=== PATIENT | female | born 1955 ===

== ENCOUNTER 2018-07-14 05:54 | Inpatient (IN) | payer MEDICARE, MEDICAID ==
--- NOTE | 2018-07-04 21:13 | HP ---
PREOPERATIVE HISTORY AND PHYSICAL: DATE OF ADMISSION/SURGERY: 07/14/18. DATE OF OFFICE VISIT: 07/04/18. ATTENDING SURGEON: Dr. Rick Peterson.* (DICTATED BY REED RHODES) PROCEDURE: Right total knee replacement. CHIEF COMPLAINT: Right knee pain. HISTORY OF PRESENT ILLNESS: Maeve is a 63-year-old female, who presents to clinic for right knee pain due to end-stage osteoarthritis. She has failed conservative treatment to include physical therapy, and injections as well as genicular block. She continues to have knee, and therefore she has agreed to undergo a right total knee replacement with Dr. Peterson, on 07/14/18. PAST MEDICAL HISTORY: Headache, depression, back pain, hypertension, hyperlipidemia, psoriasis, GERD, COPD, and heart murmur. PAST SURGICAL HISTORY: Removal of uterine cyst in 1979, tubal ligation, partial hysterectomy, right thumb tendon surgery, bilateral cataract surgery, disk surgery in her neck and a left total knee replacement. The patient denies prior complications with anesthesia. MEDICATIONS: 1. Voltaren 1% apply 4g twice daily as needed. 2. Cyclobenzaprine 10 mg 1 by mouth 3 times a day. 3. Norvasc 10 mg 1 by mouth every day. 4. Lisinopril and hydrochlorothiazide 20/25, one every day. 5. Mansfield 10/325, one by mouth 3 times a day as needed. ALLERGIES: OXYCODONE, ERYTHROMYCIN, PAXIL, DARVOCET, and CELEBREX. FAMILY HISTORY: Positive for heart disease and cancer. SOCIAL HISTORY: She is a . She is retired. She denies alcohol use. She smokes half a pack per day. She denies illegal drug use. REVIEW OF SYSTEMS: A 14-point review of systems was reviewed with the patient. Positive for current complaint, otherwise negative. Denies fever, chills, chest pain, shortness of breath, history of bleeding disorder, history of DVT or PE. PHYSICAL EXAMINATION GENERAL: A 63-year-old, well-developed, well-nourished female, in no acute distress. Alert and oriented x3. Appropriate mood and affect. Appropriate balance and coordination of the lower extremities. VITAL SIGNS: Height 61, weight 156. Blood pressure 124/64, respiratory rate 20 , temperature 98, BMI 31.4. HEENT: Normocephalic, atraumatic. PERRLA. NECK: Supple. Throat clear. PULMONARY: Lungs clear to auscultation bilaterally. No wheezing, rhonchi or rales. CARDIAC: Regular rate and rhythm. S1 and S2. No murmurs, gallops or rubs. No edema. ABDOMEN: Positive bowel sounds. Soft, nontender. NEUROLOGIC: Alert and oriented x3. Cranial nerves grossly intact. Sensation intact to light touch. MUSCULOSKELETAL: Right knee, she has moderate effusion in her knee. Range of motion 0 to 110. Tenderness to palpation over the medial and lateral joint line. Stable to varus and valgus stress. Calves soft, nontender, +5/5 strength ankle, dorsiflexion, plantar flexion. +2 DP pulse. Sensation intact to light touch distally. DIAGNOSTIC STUDIES: Multiple view x-rays of the right knee reveals severe osteoarthritis. IMPRESSION AND PLAN: The patient is scheduled to undergo a right total knee replacement with Dr. Peterson, on 07/04/18 for treatment of end-stage osteoarthritis. She will follow up in 1 month postop for followup and suture removal. REED RHODES [id number]/[facility] #: [id number] ALHAJI
[2018-07-14] MEDS ORDERED: Buffered Lidocaine 0.9% SYRIN* 5 ML/SYR SYRINGE INTRADERM ONE (06:00)
--- OUTSIDE RECORDS SUMMARY | 2018-07-14 06:01 | XMS REPORT ---
:1955 External Reference #:[id number] Author Organization [employer] Address [address] [place] [address] [place] [address] Phone [phone] Care Team Providers Name Role Phone Glen Garner MD Primary Care Physician Unavailable Payers Type Date Identification Numbers Payment Provider Subscriber Medicare Primary Effective: Policy Number: Medicare Maeve Ayala 2018 [id number] PayID: [id number] [address] [place] [address] [facility] Part [facility] Policy Number: [id number] Medicaid Maeve Ayala PayID: [id number] [address] [place] [address] Problems Date Description Provider Status Onset: 04/05/2015 Localized, primary osteoarthritis Rick Peterson M.D. Active Onset: 06/28/2015 Electrocardiogram abnormal Manny Freire M.D., Active [facility] Onset: 06/28/2015 Dyspnea Manny Freire M.D., Active [facility] Onset: 10/26/2016 Current tear of medial cartilage Rick Peterson M.D. Active AND/OR meniscus of knee Onset: 11/22/2016 Derangement of medial meniscus Rick Peterson M.D. Active Onset: 01/03/2017 Aneurysm of thoracic aorta Edinson Aguilar M.D. Active Onset: 05/14/2017 Swelling of first metatarsal joint Rick Peterson M.D. Active of hallux of left foot Onset: 06/06/2017 Brachial neuritis Rick Peterson M.D. Active Family History Date Family Member(s) Problem(s) Comments General Heart Disease General Cancer Father Heart Disease Mother Colon Cancer Mother Kidney Disease Social History Type Date Description Comments Marital Status Lives With Children Occupation Retired ETOH Use Denies alcohol use Smoking Light tobacco smoker (10 or fewer 6-8cigs daily cigarettes/day) Recreational Drug Use Denies Drug Use Daily Caffeine Consumes on average 2 cups of regular coffee per day Daily Caffeine Consumes on average 16oz of soda per day Exercise Type/Frequency Exercises regularly walks 6-7 times/week Allergies, Adverse Reactions, Alerts Date Description Reaction Status Severity Comments 06/18/2012 Oxycontin low resp rate active 06/18/2012 Erythromycin GI upset active 06/18/2012 Paxil hives active 06/18/2012 Darvocet pt does not remember active 02/13/2013 Celebrex hives active Medications Medication Date Status Form Strength Qnty SIG Indications Ordering Provider Rigoberto 02/13 Active Gel 1% 500units apply 4 M17.11 grams to Nicholas, affected M.D. area twice a day as needed Cyclobenzaprine 06/06 Active Tablets 10mg 90tabs take 1 M54.12 tablet up Nicholas, to three M.D. times a day as needed Norvasc Active Tablets 10mg 1 by mouth Unknown /0000 every day Lisinopril-[place] Active Tablets 20-25mg 1 by mouth Unknown chlorothiazide /0000 every day Branson Active Tablets 10-325mg 1 by mouth Unknown /0000 tid as needed Cephalexin 09/17 Hx Capsules 500mg 28caps 1 by mouth M21.612 four times Nicholas, - daily x 7 M.D. Branson 09/06 Hx Tablets 5-325mg 60tabs 1-2 by mouth two Nicholas, - times a M.D. , total tylenol dose as 325 mg in other noco tabs Gabapentin 06/06 Hx Capsules 300mg 30caps 1 by mouth M54.12 every Nicholas, - night at M.D. 10/22 bed Oxycodone HCL 01/15 Hx Tablets 5mg 42tabs one to 2 M17.11 tablets Nicholas, - q6h as M.D. 05/13 needed in addition to norco 5 and 10's previously prescibed for pain Branson 01/11 Hx Tablets 5-325mg 60tabs 1-2 by mouth Nicholas, - every 4 to M.D. 05/06 6 hours as needed, watch total tylenol dose daily, as 325 mg in dose. Keflex 01/11 Hx Capsules 500mg 15caps 1 by mouth three Nicholas, - times a M.D. Naprosyn 09/29 Hx Tablets 375mg 60tabs 1 po bid prn Nicholas, - M.D. 06/21 Vicodin 03/24 Hx Tablets 5-500mg 40tabs 1-2 by mouth Nicholas, - every 4-6 M.D. 06/21 hours needed for pain 6666Neurontin 01/06 Hx Capsules 100mg 30caps 1 po qhs Nicholas, - M.D. 09/29 Neurontin 12/02 Hx Capsules 300mg 40caps 1 po qhs Nicholas, - M.D. 01/06 Voltaren 10/28 Hx Gel 1% Lrgtube apply 2 grams Nicholas, - topically M.D. 10/21 to area two times a day Branson 09/30 Hx Tablets 5-325mg 80tabs 1 tabs po q6 prn Nicholas, - pain M.D. 03/24 Hinged Knee 06/18 Hx as 716.96 Ashish Molina /2011 directed Katelynn, - M.D. 02/26 Omeprazole Hx Capsules 20mg 1 by mouth Unknown /0000 DR every day - 06/27 Ambien Hx Tablets 5mg one by Unknown /0000 mouth at - bedtime as 06/27 needed for sleep Medications Administered in Office Medication Date Status Form Strength Qnty SIG Indications Ordering Provider Inj, Administered Injection Manny Harrington, 015 Tani, 0.1 MG M.D., FAC, [facility] Technetium TC Administered Injection Manny Landin 99M 015 Truman Freire M.D., [facility], Per Unit Dose FASJOSE Up To 40 Millicuries Depomedrol Administered Injection Rick 80MG 015 Freda Peterson Depomedrol Administered Injection Rick 80MG 013 Freda Peterson Vital Signs Date Vital Result Comment 07/04/2018 Height 61 inches 5'1" Weight 166.00 lb BP Systolic 124 mmHg BP Diastolic 64 mmHg Respiratory Rate 20 /min Body Temperature 98.0 F Pain Level 10 BMI (Body Mass Index) 31.4 kg/m2 06/26/2018 Height 61 inches 5'1" Weight 162.25 lb with shoes Heart Rate 64 /min BP Systolic Sitting 128 mmHg left arm, large cuff, sitting BP Diastolic Sitting 68 mmHg left arm, large cuff, sitting BP Systolic Standing 124 mmHg left arm, large cuff, standing BP Diastolic Standing 64 mmHg left arm, large cuff, standing Respiratory Rate 16 /min Body Temperature 98.1 F O2 % BldC Oximetry 97 % BMI (Body Mass Index) 30.7 kg/m2 Ejection Fraction 55-60% 03/04/17 06/17/2018 Height 61 inches 5'1" Weight 160.00 lb Heart Rate 84 /min BP Systolic Recheck 128 mmHg BP Diastolic Recheck 84 mmHg Respiratory Rate 16 /min Body Temperature 98.0 F BMI (Body Mass Index) 30.2 kg/m2 02/13/2018 Height 61 inches 5'1" Weight 156.00 lb Heart Rate 76 /min BP Systolic Recheck 126 mmHg BP Diastolic Recheck 84 mmHg Respiratory Rate 16 /min Body Temperature 98.4 F BMI (Body Mass Index) 29.5 kg/m2 01/02/2018 Height 62 inches 5'2" Weight 155.00 lb Heart Rate 76 /min BP Systolic Recheck 126 mmHg BP Diastolic Recheck 84 mmHg Respiratory Rate 16 /min Body Temperature 98.3 F BMI (Body Mass Index) 28.3 kg/m2 11/28/2017 Height 62 inches 5'2" Weight 157.00 lb Heart Rate 76 /min BP Systolic Recheck 132 mmHg BP Diastolic Recheck 84 mmHg Respiratory Rate 16 /min Body Temperature 98.4 F BMI (Body Mass Index) 28.7 kg/m2 10/22/2017 Height 62 inches 5'2" Weight 157.00 lb Heart Rate 80 /min BP Systolic Recheck 130 mmHg BP Diastolic Recheck 84 mmHg Respiratory Rate 16 /min Body Temperature 98.0 F BMI (Body Mass Index) 28.7 kg/m2 10/08/2017 Height 62 inches 5'2" Weight 157.00 lb Heart Rate 80 /min BP Systolic Recheck 128 mmHg BP Diastolic Recheck 84 mmHg Respiratory Rate 16 /min Body Temperature 98.5 F BMI (Body Mass Index) 28.7 kg/m2 09/27/2017 Height 62 inches 5'2" Weight 140.00 lb Heart Rate 76 /min BP Systolic Recheck 128 mmHg BP Diastolic Recheck 84 mmHg Respiratory Rate 16 /min Body Temperature 98.4 F BMI (Body Mass Index) 25.6 kg/m2 09/17/2017 Height 62 inches 5'2" Weight 140.00 lb Heart Rate 76 /min BP Systolic Recheck 132 mmHg BP Diastolic Recheck 84 mmHg Respiratory Rate 16 /min Body Temperature 98.6 F BMI (Body Mass Index) 25.6 kg/m2 09/10/2017 Height 61 inches 5'1" Weight 140.00 lb Heart Rate 76 /min BP Systolic Recheck 132 mmHg BP Diastolic Recheck 84 mmHg Respiratory Rate 16 /min Body Temperature 98.0 F BMI (Body Mass Index) 26.4 kg/m2 08/13/2017 Height 61 inches 5'1" Weight 154.00 lb Heart Rate 80 /min BP Systolic Recheck 130 mmHg BP Diastolic Recheck 84 mmHg Respiratory Rate 16 /min Body Temperature 97.9 F BMI (Body Mass Index) 29.1 kg/m2 07/25/2017 Height 61 inches 5'1" Weight 155.00 lb Heart Rate 80 /min BP Systolic Recheck 130 mmHg BP Diastolic Recheck 82 mmHg Respiratory Rate 16 /min Body Temperature 98.0 F BMI (Body Mass Index) 29.3 kg/m2 06/06/2017 Height 62 inches 5'2" Weight 149.00 lb Heart Rate 80 /min BP Systolic Recheck 132 mmHg BP Diastolic Recheck 84 mmHg Respiratory Rate 16 /min Body Temperature 98.1 F BMI (Body Mass Index) 27.2 kg/m2 05/14/2017 Height 62 inches 5'2" Weight 157.00 lb Heart Rate 76 /min BP Systolic Recheck 132 mmHg BP Diastolic Recheck 84 mmHg Respiratory Rate 16 /min Body Temperature 97.9 F BMI (Body Mass Index) 28.7 kg/m2 04/18/2017 Height 61 inches 5'1" Weight 162.00 lb Heart Rate 80 /min BP Systolic Recheck 130 mmHg BP Diastolic Recheck 84 mmHg Respiratory Rate 16 /min Body Temperature 97.3 F BMI (Body Mass Index) 30.6 kg/m2 02/12/2017 Height 61 inches 5'1" Weight 164.00 lb Heart Rate 80 /min BP Systolic Recheck 130 mmHg BP Diastolic Recheck 84 mmHg Respiratory Rate 16 /min Body Temperature 98.4 F BMI (Body Mass Index) 31.0 kg/m2 01/22/2017 Height 62 inches 5'2" Weight 165.00 lb Heart Rate 76 /min BP Systolic Recheck 130 mmHg BP Diastolic Recheck 84 mmHg Respiratory Rate 16 /min Body Temperature 97.7 F BMI (Body Mass Index) 30.2 kg/m2 01/15/2017 Height 62 inches 5'2" Weight 170.00 lb Heart Rate 76 /min BP Systolic Recheck 126 mmHg BP Diastolic Recheck 82 mmHg Respiratory Rate 16 /min Body Temperature 98.3 F BMI (Body Mass Index) 31.1 kg/m2 01/03/2017 Height 62 inches 5'2" Weight 166.00 lb Heart Rate 72 /min BP Systolic 112 mmHg left BP Diastolic 64 mmHg left BP Systolic Sitting 110 mmHg left BP Diastolic Sitting 60 mmHg left BP Systolic Standing 110 mmHg left BP Diastolic Standing 60 mmHg left BP Systolic Recheck 116 mmHg right BP Diastolic Recheck 64 mmHg right Pain Level 0 BMI (Body Mass Index) 30.4 kg/m2 11/22/2016 Height 62 inches 5'2" Weight 172.00 lb Heart Rate 88 /min BP Systolic Recheck 130 mmHg BP Diastolic Recheck 84 mmHg Respiratory Rate 16 /min Body Temperature 98.0 F BMI (Body Mass Index) 31.5 kg/m2 10/26/2016 Height 62 inches 5'2" Weight 172.00 lb Heart Rate 76 /min BP Systolic Recheck 132 mmHg BP Diastolic Recheck 84 mmHg Respiratory Rate 16 /min Body Temperature 98.6 F BMI (Body Mass Index) 31.5 kg/m2 03/02/2016 Height 61 inches 5'1" Weight 181.00 lb Heart Rate 80 /min BP Systolic Recheck 128 mmHg BP Diastolic Recheck 84 mmHg Respiratory Rate 16 /min Body Temperature 98.1 F BMI (Body Mass Index) 34.2 kg/m2 09/20/2015 Height 62 inches 5'2" Weight 180.00 lb Heart Rate 68 /min BP Systolic 148 mmHg right arm, reg cuff BP Diastolic 82 mmHg right arm, reg cuff BP Systolic Sitting 152 mmHg left arm, reg cuff BP Diastolic Sitting 82 mmHg left arm, reg cuff BP Systolic Standing 162 mmHg left arm, reg cuff BP Diastolic Standing 90 mmHg left arm, reg cuff Respiratory Rate 20 /min BMI (Body Mass Index) 32.9 kg/m2 Ejection Fraction 67% echo 06/201506/28/2015 Height 62 inches 5'2" Weight 178.00 lb Heart Rate 54 /min BP Systolic 128 mmHg right arm, reg cuff BP Diastolic 76 mmHg right arm, reg cuff BP Systolic Sitting 132 mmHg left arm, reg cuff BP Diastolic Sitting 80 mmHg left arm, reg cuff BP Systolic Standing 126 mmHg left arm, reg cuff BP Diastolic Standing 80 mmHg left arm, reg cuff Respiratory Rate 16 /min BMI (Body Mass Index) 32.6 kg/m2 04/05/2015 Height 61 inches 5'1" Weight 179.00 lb Heart Rate 69 /min BP Systolic Sitting 150 mmHg BP Diastolic Sitting 84 mmHg Pain Level 2 BMI (Body Mass Index) 33.8 kg/m2 06/18/2012 Height 62 inches 5'2" Weight 210.00 lb Heart Rate 64 /min BP Systolic 142 mmHg BP Diastolic 80 mmHg BMI (Body Mass Index) 38.4 kg/m2 Results Test Date Test Result H/L Range Note Urinalysis Profile 07/04/2018 Urine Color Yellow Urine Appearance Clear Urine Specific [place] 1.019 1.010-1.030 Urine pH 5.0 5-9 Urine Urobilinogen Negative Negative Urine Ketones Negative Negative Urine Protein Negative Negative Urine Leukocytes Negative Negative Urine Blood Negative Negative Urine Nitrite Negative Negative Urine Bilirubin Negative Negative Urine Glucose Negative Negative Procedures Date CPT Code Description Status 06/26/2018 90695 EKG, Interpretation Only Completed 06/26/2018 85310 EKG Tracing & Interpretation Completed 09/06/2017 98068 Correction, Hallux Valgus (bunion) w/ Metatarsal Completed Osteotomy 04/25/2017 Colonoscopy Completed 04/25/2017 78418 Colonoscopy Flexible Diagnostic Completed 04/25/2017 64268 Moderate Sedation Services; Same Phys Intl 15 Mins; PT Completed >=5 Years 04/18/2017 Colonoscopy Completed 03/04/2017 82435 ECHO Transthorasic Realtime 2D W Doppler & Color Flow Completed Hosp 01/11/2017 59051 Arthroscopy,Knee,Meniscectomy Medial Or Lateral Completed 10/26/201681477 Inject/Drain Joint/Bursa Major W/O US Completed 03/02/2016 Inject/Drain Joint/Bursa Major W/O US Completed 08/17/2015 57340 Stress Test Completed 08/17/2015 31963 Myocardial Perfusion Imaging Tomographic (Spect) Completed Multiple Studies 07/18/2015 10488 ECHO Transthorasic Realtime 2D W Doppler & Color Flow Completed Hosp 04/05/201552663 Inject/Drain Joint/Bursa Major W/O US Completed 01/06/2013 Inject/Drain Joint/Bursa Major W/O US Completed 09/15/2012 87633 TKR Total Knee Replacement Completed Encounters Type Date Location Provider CPT E/M Dx Office Visit 06/17/2018 [facility] 73138 M17.11 8:15a Arturo Amador M.D. Office Visit 02/13/2018 [facility] 09907 M17.11 8:00a Arturo Amador M.D. M21.612 Office Visit 01/02/2018 8:00a [facility] 78030 M17.11 Of Arturo Amador M.D. Office Visit 08/13/2017 8:00a [facility] 18793 M21.612 Of Arturo Amador M.D. Office Visit 07/25/2017 9:30a [facility] 71213 M54.12 Of Arturo Amador M.D. R25.2 Office Visit 06/06/2017 11:30a [facility] 45859 M54.12 Of Arturo Amador M.D. Office Visit 05/14/2017 9:30a [facility] 25423 M21.612 Of Arturo Amador M.D. Office Visit 04/18/2017 12:30p [facility] Denis Koehler, 24253 K62.5 Of Arturo Amador MD K57.30 Z80.0 Office Visit 01/03/2017 11:00a Perry Aguilar M.D. 01389 I10 I11.9 I71.2 Z01.810 M23.231 Office Visit 11/22/2016 11:15a [facility] 99147 M23.231 Of [facility] AT [facility] Barba M17.11 Office Visit 10/26/2016 10:30a [facility] 55087 M17.11 [facility] M23.206 Office Visit 03/02/2016 12:45p [facility] 56187 M17.11 Of [facility] TERRELL Amador M.D. Office Visit 09/20/2015 10:15a [facility] [place] [address] Z01.810 [facility] Z72.0 R94.31 I10 I11.9 J44.9 I71.2 Office Visit 06/28/2015 9:15a [facility] Manny Freire, 35804 794.31 M.DChen, [facility], FASNC 786.05 Office Visit 04/05/2015 11:15a [facility] 76689 715.16 CMarcelino Barba Office Visit 03/02/2014 1:15p [facility] Espinod[facility] 82162 726.61 [facility] Office Visit 09/29/2013 11:30a [facility] Espinodante 09360 715.16 Art[facility] AT [facility] Office Visit 06/16/2013 1:15p [facility] Espinod[facility] 59788 715.96 Art[facility] AT [place] [facility] Office Visit 05/11/2013 2:30p [facility] Reid M.D. 88886 729.5 Art[facility] AT [place] Office Visit 04/07/2013 1:00p [facility] Espinod[facility] 92942 924.11 [facility] Office Visit 03/10/2013 1:30p [facility] Espinodante 51538 715.96 [facility] [place] [facility] 715.95 Office Visit 01/06/2013 1:00p [facility] Espinodante 57746 715.16 [facility] [place] [facility] 726.61 Office Visit 08/12/2012 11:15a [facility] 15598 715.96 Art[facility] AT [place] [facility] Office Visit 07/22/2012 8:15a [facility] 28380 717.7 [facility] AT [place] [facility]ba 719.46 Office Visit 06/18/2012 10:45a [facility] Ashish Pace M.D. 19633 716.96 [facility] AT [place] Plan of Care Future Appointment(s):07/14/2018 7:30 am - REED Lloyd at [facility]07/14/2018 7:30 am - Rick Peterson M.D. at [facility]08/12/2018 11:00 am - Rick Peterson M.D. at [facility] AT [place]54/14/2018 - REED Yoon-CM17.11 Unilateral primary osteoarthritis, right kneeFollow up:Follow up: 1 month post op
--- OUTSIDE RECORDS SUMMARY | 2018-07-14 06:02 | XMS REPORT ---
:1955 External Reference #:[id number] Author Organization [employer] Address [address] [place] [address] [place] [address] Phone [phone] Care Team Providers Name Role Phone Glen Garner MD Primary Care Physician Unavailable Payers Type Date Identification Numbers Payment Provider Subscriber Medicare Primary Effective: Policy Number: Medicare Maeve Ayala 2018 [id number] PayID: [id number] [address] [place] [address] [facility] Part B Policy Number: [id number] Medicaid Maeve Ayala PayID: [id number] [address] [place] [address] Problems Date Description Provider Status Onset: 04/05/2015 Localized, primary osteoarthritis Rick Peterson M.D. Active Onset: 06/28/2015 Electrocardiogram abnormal Manny Freire M.D., Active [facility] Onset: 06/28/2015 Dyspnea Manny Freire M.D., Active [facility] Onset: 10/26/2016 Current tear of [...] 1 by mouth Unknown /0000 every day Lisinopril-[place] Active Tablets 20-25mg 1 by mouth Unknown chlorothiazide /0000 every day [place] Active Tablets 10-325mg 1 by mouth Unknown /0000 tid as needed Cephalexin 09/17 Hx Capsules 500mg 28caps 1 by mouth M21.612 four times Nicholas, - daily x 7 M.D. [place] 09/06 Hx Tablets 5-325mg 60tabs 1-2 by [...] 5 and 10's previously prescibed for pain [place] 01/11 Hx Tablets 5-325mg 60tabs 1-2 by [...] 10/21 to area two times a day [place] 09/30 Hx Tablets 5-325mg 80tabs 1 tabs [...] Manny Landin 99M 015 Truman Freire M.D., [facility], Per Unit Dose FASJOSE Up To 40 Millicuries Depomedrol Administered Injection Rick 80MG 015 Freda Peterson Depomedrol Administered Injection Rick 80MG 013 Freda Peterson Vital Signs Date Vital Result Comment 06/26/2018 Height 61 inches 5'1" Weight 162.25 [...] BMI (Body Mass Index) 38.4 kg/m2 Results Description No Information Procedures Date CPT Code Description Status 09/06/2017 09248 Correction, Hallux Valgus (bunion) w/ Metatarsal Completed Osteotomy 04/25/2017 38250 Moderate Sedation Services; Same Phys Intl 15 Mins; PT Completed >=5 Years 04/25/2017 62423 Colonoscopy Flexible Diagnostic Completed 04/25/2017 Colonoscopy Completed 04/18/2017 Colonoscopy Completed 03/04/2017 94053 ECHO Transthorasic Realtime 2D W Doppler & Color Flow Completed Hosp 01/11/2017 88569 Arthroscopy,Knee,Meniscectomy Medial Or Lateral Completed 10/26/2016 56286 Inject/Drain Joint/Bursa Major W/O US Completed 03/02/2016 54317 Inject/Drain Joint/Bursa Major W/O US Completed 08/17/2015 40253 Stress Test Completed 08/17/2015 89953 Myocardial Perfusion Imaging Tomographic (Spect) Completed Multiple Studies 07/18/2015 54364 ECHO Transthorasic Realtime 2D W Doppler & Color Flow Completed Hosp 04/05/2015 85207 Inject/Drain Joint/Bursa Major W/O US Completed 01/06/2013 36251 Inject/Drain Joint/Bursa Major W/O US Completed 09/15/2012 83854 TKR Total Knee Replacement Completed Encounters Type Date Location Provider CPT E/M Dx Office Visit 02/13/2018 [facility] 52152 M17.11 8:00a [facility] AT [place] [facility] M21.612 Office Visit 01/02/2018 8:00a [facility] Rick Peterson 01156 M17.11 Of [facility] [place] [facility] Office Visit 08/13/2017 8:00a [facility] Rick Peterson 96106 M21.612 Of [facility] AT [place] [facility] Office Visit 07/25/2017 9:30a [facility] Rick Peterson 89491 M54.12 Of [facility] [place] [facility] R25.2 Office Visit 06/06/2017 11:30a [facility] Rick Peterson 77733 M54.12 Of [facility] Amador M.D. Office Visit 05/14/2017 9:30a [facility] Rick Peterson 39844 M21.612 Of [facility] Medicare TERRELL Amador M.D. Office Visit 04/18/2017 12:30p [facility] Denis Koehler, 33643 K62.5 Of [facility] AT [place] [facility] K57.30 Z80.0 Office Visit 01/03/2017 11:00a [facility] Edinson Aguilar M.D. 13452 I10 I11.9 I71.2 Z01.810 M23.231 Office Visit 11/22/2016 11:15a [facility] Rick Peterson 46773 M23.231 Of [facility] TERRELL Amador M.D. M17.11 Office Visit 10/26/2016 10:30a [facility] 50676 M17.11 [facility] AT [place] [facility] M23.206 Office Visit 03/02/2016 12:45p [facility] Rick Peterson 30167 M17.11 Of [facility] Amador M.D. Office Visit 09/20/2015 10:15a [facility] [place] [address] Z01.810 FAC Z72.0 R94.31 I10 I11.9 J44.9 I71.2 Office Visit 06/28/2015 9:15a [facility] Manny Mushtaq Freire, 69139 794.31 M.Yessy, [facility] [place] 786.05 Office Visit 04/05/2015 11:15a [facility], 00857 715.16 CMarcelino [facility] Office Visit 03/02/2014 1:15p [facility], 00848 726.61 [facility] AT [place] [facility] Office Visit 09/29/2013 11:30a [facility], 98009 715.16 [facility] AT [place] [facility] Office Visit 06/16/2013 1:15p [facility] Rick Espinodante 90651 715.96 [facility] AT [place] [facility] Office Visit 05/11/2013 2:30p [facility] Jorge Reid M.D. 52914 729.5 [facility] AT [place] Office Visit 04/07/2013 1:00p [facility], 89298 924.11 [facility] AT [place] [facility] Office Visit 03/10/2013 1:30p [facility] 18906 715.96 [facility] AT [place] [facility] 715.95 Office Visit 01/06/2013 1:00p [facility], 78858 715.16 [facility] AT [place] [facility] 726.61 Office Visit 08/12/2012 11:15a [facility] 83773 715.96 [facility] AT [place] [facility] Office Visit 07/22/2012 8:15a [facility], 25835 717.7 [facility] AT [place] [facility] 719.46 Office Visit 06/18/2012 10:45a [facility] Ashish Pace M.D. 55490 716.96 [facility] AT [place] Plan of Care Future Appointment(s):07/14/2018 7:30 am - REED Lloyd at [facility]07/14/2018 7:30 am - Rick Peterson M.D. at [facility]07/04/2018 1:00 pm - Joo Tang PA-C at [facility]08/12/2018 11:00 am - Rick Peterson M.D. at [facility] AT [facility]25/06/2018 - Edinson Aguilar M.D.Z01.810 Encounter for preprocedural cardiovascular examinationFollow up:As needed
--- OUTSIDE RECORDS SUMMARY | 2018-07-14 06:02 | XMS REPORT ---
:1955 External Reference #:[id number] Author Organization [employer] Address [address] [place] [address] [place] [address] Phone [phone] Care Team Providers Name Role Phone Glen Garner MD Primary Care Physician Unavailable Payers Type Date Identification Numbers Payment Provider Subscriber Medicare Primary Effective: Policy Number: Medicare Maeve Ayala 2018 [id number] PayID: [id number] [address] [place] [address] [facility] Part B Policy Number: [id number] Medicaid Maeve Ayala PayID: [id number] [address] [place] [address] Problems Date Description Provider Status Onset: 04/05/2015 Localized, primary osteoarthritis Rick Peterson M.D. Active Onset: 06/28/2015 Electrocardiogram abnormal Manny Freire M.D., Active [facility] Onset: 06/28/2015 Dyspnea Manny Freire M.D., Active [facility] Onset: 10/26/2016 Current tear of [...] 1 by mouth Unknown /0000 every day Lisinopril-[place] Active Tablets 20-25mg 1 by mouth Unknown chlorothiazide /0000 every day [place] Active Tablets 10-325mg 1 by mouth Unknown /0000 tid as needed Cephalexin 09/17 Hx Capsules 500mg 28caps 1 by mouth M21.612 four times Nicholas, - daily x 7 M.D. [place] 09/06 Hx Tablets 5-325mg 60tabs 1-2 by [...] 5 and 10's previously prescibed for pain [place] 01/11 Hx Tablets 5-325mg 60tabs 1-2 by [...] 10/21 to area two times a day [place] 09/30 Hx Tablets 5-325mg 80tabs 1 tabs [...] Harrington, 015 Tani, 0.1 MG M.D., FAC, SO[facility] Technet[employer] TC Administered Injection Manny Landin 99M 015 Truman Freire M.D., [facility], Per Unit Dose FASJOSE Up To 40 Millicuries Depomedrol Administered Injection Rick 80MG 015 Freda Peterson Depomedrol Administered Injection Rick 80MG 013 Freda Peterson Vital Signs Date Vital Result Comment 06/17/2018 Height 61 inches 5'1" Weight 160.00 [...] Procedures Date CPT Code Description Status 09/06/2017 06650 Correction, Hallux Valgus (bunion) w/ Metatarsal Completed Osteotomy 04/25/2017 39687 Moderate Sedation Services; Same Phys Intl 15 Mins; PT Completed >=5 Years 04/25/2017 36899 Colonoscopy Flexible Diagnostic Completed 04/25/2017 Colonoscopy Completed 04/18/2017 Colonoscopy Completed 03/04/2017 95695 ECHO Transthorasic Realtime 2D W Doppler & Color Flow Completed Hosp 01/11/2017 91588 Arthroscopy,Knee,Meniscectomy Medial Or Lateral Completed 10/26/2016 04788 Inject/Drain Joint/Bursa Major W/O US Completed 03/02/2016 88617 Inject/Drain Joint/Bursa Major W/O US Completed 08/17/2015 75555 Stress Test Completed 08/17/2015 42261 Myocardial Perfusion Imaging Tomographic (Spect) Completed Multiple Studies 07/18/2015 87600 ECHO Transthorasic Realtime 2D W Doppler & Color Flow Completed Hosp 04/05/2015 33091 Inject/Drain Joint/Bursa Major W/O US Completed 01/06/2013 12539 Inject/Drain Joint/Bursa Major W/O US Completed 09/15/2012 73299 TKR Total Knee Replacement Completed Encounters Type Date Location Provider CPT E/M Dx Office Visit 02/13/2018 [facility], 91496 M17.11 8:00a [facility] Amador M.D. M21.612 Office Visit 01/02/2018 8:00a [facility] Rick Peterson 44502 M17.11 Of [facility] Amador M.D. Office Visit 08/13/2017 8:00a [facility] Rick Petersno 85271 M21.612 [facility] 07/25/2017 9:30a [facility] Rick Nicholas 67402 M54.12 [facility] R25.2 Office Visit 06/06/2017 11:30a [facility] Rick Nicholas 48537 M54.12 [facility] Visit 05/14/2017 9:30a [facility] Rick Nicholas 25587 M21.612 [facility]/18/2017 [facility] Denis Koehler, 12640 K62.5 Of [facility] AT [facility] K57.30 Z80.0 Office Visit 01/03/2017 11:00a [facility] Edinson Aguilar M.D. 06651 I10 I11.9 I71.2 Z01.810 M23.231 Office Visit 11/22/2016 11:15a [facility] Rick Peterson 29220 M23.231 Of [facility] M17.11 Office Visit 10/26/2016 10:30a [facility] Rick Peterson 67786 M17.11 [facility] M23.206 Office Visit 03/02/2016 12:45p [facility] Rick Peterson 67589 M17.11 [facility] Office Visit 09/20/2015 10:15[place] [facility] [place] [address] Z01.810 [facility] Z72.0 R94.31 I10 I11.9 J44.9 I71.2 Office Visit 06/28/2015 9:15a [facility] Manny Freire, 12033 794.31 MLesa, [facility], [facility] 786.05 Office Visit 04/05/2015 11:15a [facility] Rick Espinodante 59927 715.16 C.MErick [facility] Office Visit 03/02/2014 1:15p [facility] Peterson 54985 726.61 [facility] Visit 09/29/2013 11:30a [facility] Rick Espinodante 82315 715.16 [facility] [place] [facility] Office Visit 06/16/2013 1:15p [facility] Rick Espinodante 16044 715.96 [facility] [place] [facility] Office Visit 05/11/2013 2:30p [facility] Jorge Reid M.D. 88806 729.5 [facility] [place] Office Visit 04/07/2013 1:00p [facility] Rick Espinodante 13156 924.11 [employer] AT [place] [facility] Office Visit 03/10/2013 1:30p [facility] Rick Espinodante 54133 715.96 [facility] [place] [facility] 715.95 Office Visit 01/06/2013 1:00p [facility] Rick Espinodante 66728 715.16 [facility] [place] [facility] 726.61 Office Visit 08/12/2012 11:15a [facility] Rick Espinodante 00167 715.96 [facility] [place] [facility] Office Visit 07/22/2012 8:15a [facility] Rick Espinodante 22016 717.7 [facility] [place] [facility] 719.46 Office Visit 06/18/2012 10:45a [facility] Ashish Pace M.D. 72572 716.96 [facility] [place] Plan of Care Future Appointment(s):08/12/2018 11:00 am - Rick Peterson M.D. at [facility] AT Vk[facility]nlzyb88/28/2018 - Rick Peterson M.D.M17.11 Unilateral primary osteoarthritis, right kneeFollow up:4 weeks ater surgery with x-rays
[2018-07-14] MEDS ORDERED: ceFAZolin 2 GM in NS PREMIX(*) 2 GM/100 ML BAG IVPB ONE (06:06)
[2018-07-14] MEDS ORDERED: fentaNYL* 50 MCG/ML 2 ML VIAL (100 MCG VIAL) ONE ×2 (07:08→10:32)
[2018-07-14] MEDS ORDERED: Midazolam* 1 MG/ML 2 ML VIAL (2 MG) ONE (07:09)
[2018-07-14] MEDS ORDERED: ROPIVACAINE 5 MG/ML 30 ML BTL (0.5%) ONE (07:16)
[2018-07-14] MEDS ORDERED: Lidocaine 1%* 5 ML VIAL ONE (07:16)
[2018-07-14] MEDS ORDERED: Bupivacaine 0.25% EPI 200,000* 30 ML SDV ONE (07:56)
[2018-07-14] MEDS ORDERED: Propofol* 10 MG/ML 20 ML BTL IV PUSH ONE ×2 (07:57→08:41)
[2018-07-14] MEDS ORDERED: Lidocaine 2% PF * 5 ML VIAL ONE (07:57)
[2018-07-14] MEDS ORDERED: Bupivacaine-MPF SPINAL* 7.5 MG/ML - 2ML AMP ONE (07:57)
[2018-07-14] MEDS ORDERED: HYDROcodone/ACETAMIN 5-325 MG* 1 TAB PO PRN (08:48)
[2018-07-14] MEDS ORDERED: Ondansetron INJ* 2 MG/ML VIAL IV PRN (08:48)
[2018-07-14] MEDS ORDERED: Naloxone* 0.4 MG/ML 1 ML VIAL IV PRN (08:48)
[2018-07-14] MEDS ORDERED: Acetaminophen TAB* 325 MG PO PRN ×2 (08:48→10:00)
[2018-07-14] MEDS ORDERED: HYDROmorphone INJ1* 1 MG/ML SYRINGE IV PRN (08:48)
[2018-07-14] MEDS ORDERED: DiMENhydriNATE IV* 50 MG/ML VIAL IV PUSH PRN (08:48)
[2018-07-14] MEDS ORDERED: Tranexamic Acid 1,000 MG in NS 0.9% 50 ML IV ONE (09:00)
[2018-07-14] MEDS ORDERED: Ondansetron ODT TAB* 4 MG PO PRN (09:58)
[2018-07-14] MEDS ORDERED: Magnesium Hydroxide LIQ* 30 ML UDC PO PRN (09:58)
[2018-07-14] MEDS ORDERED: diPHENhydraMINE IV* 50 MG/ML 1 ml VIAL (BENADRYL) IV PRN (09:58)
[2018-07-14] MEDS ORDERED: Bisacodyl SUPP* 10 MG SUPP PR PRN (09:58)
[2018-07-14] MEDS ORDERED: diPHENhydraMINE PO* 25 MG PO PRN (09:58)
[2018-07-14] MEDS ORDERED: D5W 1/2 NS 1000 ML BAG* 1,000 ML IV SCH (10:00)
[2018-07-14] MEDS ORDERED: HYDROmorphone INJ1* 1 MG/ML SYRINGE IV SLOW PU PRN (10:05)
[2018-07-14] MEDS ORDERED: HYDROcodone/ACETAMIN 5-325 MG* 1 TAB ONE (10:32)
[2018-07-14] MEDS: fentaNYL* 50 MCG/ML 2 ML VIAL (100 MCG VIAL) IV PRN ×2 (10:34→11:21)
--- NOTE | 2018-07-14 10:43 | RAD ---
INDICATION: Right total knee arthroplasty COMPARISON: None TECHNIQUE: 2 view radiograph of the right knee. FINDINGS: The recently installed right knee prosthesis is anatomically aligned in the AP and lateral projections. Expected postsurgical changes include subcutaneous gas at the knee joint and suprapatellar joint space as well as surgical skin mat overlying the anterior surface the knee. IMPRESSION: Anatomic alignment of recently installed right knee prosthesis with expected postsurgical changes.
[2018-07-14] MEDS ORDERED: HYDROmorphone INJ1* 1 MG/ML SYRINGE ONE ×2 (10:49→12:10)
[2018-07-14] MEDS: Nicotine PATCH 14 MG/24 HR* PATCH TRANSDERM SCH (12:42)
[2018-07-14] MEDS: Ondansetron INJ* 2 MG/ML VIAL IV PRN (12:42)
--- NOTE | 2018-07-14 13:26 | CONS ---
CONSULTATION REPORT: DATE OF CONSULT: 07/14/18 REASON FOR CONSULT: Medical management. SERVICE REQUESTING CONSULTATION: Orthopedics. SOURCE OF INFORMATION: History obtained from interview of patient and her family member. HISTORY OF PRESENT ILLNESS: This is a 63-year-old female with past medical history of headache, depression, back pain, hypertension, hyperlipidemia, psoriasis, GERD, known heart murmur, and reportedly COPD, although the patient denies this, failed conservative management for right knee pain, is now status post total knee replacement with Dr. Peterson on 07/14/18. The procedure without incident. The patient was seen in the PACU awake and interactive, although with pain in her right lower extremity. Her medications were reviewed. She currently is suffering no shortness of breath, nausea, vomiting, lightheadedness, or chest pain. She is anxious for her next dose of analgesics. PAST MEDICAL HISTORY: As indicated above including headache, depression, back pain, hypertension, hyperlipidemia, psoriasis, GERD, and COPD, although the patient denies a history of COPD, she is on no inhalers, never had any hospitalization. PAST SURGICAL HISTORY: Uterine cyst removal, tubal ligation, partial hysterectomy, right thumb tendon surgery, bilateral cataract surgery, disk surgery in her neck, and a left total knee replacement. MEDICATIONS: Home medications include: 1. Norvasc 10 mg daily. 2. Lisinopril/hydrochlorothiazide 20/25 daily. 3. [place] 10/325 three daily as needed. ALLERGIES: OXYCODONE, ERYTHROMYCIN, PAXIL, DARVOCET, and CELEBREX. FAMILY HISTORY: Positive for heart disease and cancer. SOCIAL HISTORY: No alcohol. Smokes half a pack per day, used to smoke 1 pack per day since the age of 13, so approximately 50 years. PHYSICAL EXAM: Vitals: 125/65, heart rate 55, respiratory rate is 14, 97% on room air, T-max of 98 since admission to the hospital. Slightly older than the stated age, sitting up in bed, interactive, pleasant, in no apparent distress, although does indicate pain in her right lower extremity in the area of surgery. Her oropharynx is clear. She has moist mucous membranes. Sclerae are anicteric. She has regular rate and rhythm. She has a trace 1/6 to 2/6 systolic ejection murmur, loudest in the right and left upper sternal border. Abdomen is soft, nontender, nondistended. Lungs are clear to auscultation throughout. Extremities are warm. She has no neurovascular compromise in bilateral lower extremities. Her right knee is wrapped. She is A and O x3. Her cranial nerves II through XII are all intact. DIAGNOSTIC STUDIES/LAB DATA: Labs reviewed: None for review. ASSESSMENT AND PLAN: This is a 63-year-old female with past medical history as indicated above including hypertension; hyperlipidemia, not on any medication; reported chronic obstructive pulmonary disease, not on any medication; status post right total knee replacement, now being consulted for medical management. 1. Postop day 0. Care per primary care team. She has currently been ordered for Coumadin 10 mg to start tonight. Pain management per primary team. 2. Hypertension. Restart amlodipine tomorrow, this has been ordered by this author. Holding lisinopril/hydrochlorothiazide; however, if blood pressure systolic greater than 140 or diastolic is greater than 90, restart this medication. 3. Chronic obstructive pulmonary disease, is a questionable diagnosis. The patient does have a long history of tobacco abuse; however, no hospitalizations or past medications for it according to the patient. Symptomatic treatment if necessary. 4. Tobacco abuse. Dosing the patient with a 14 mg nicotine replacement patch. 5. DVT prophylaxis: As indicated above per primary team, 10 mg Coumadin this evening. We will continue to follow. [id number]/[facility] #: [id number] [facility]
[2018-07-14] MEDS: Cyclobenzaprine TAB* 10 MG PO PRN ×2 (13:40→21:39)
[2018-07-14] MEDS: Hydrocodone/Acetamin 10/325 1 TAB PO PRN ×2 (13:53→18:40)
[2018-07-14] MEDS: Hydrocodone/Acetamin 10/325 1 TAB PO SCH ×2 (14:04→22:45)
[2018-07-14] MEDS: ceFAZolin 1 GM in Dextrose (*) 1 GM/50 ML BAG IVPB SCH (16:22)
[2018-07-14] MEDS ORDERED: Warfarin TAB(*) 10 MG PO ONE (17:00)
[2018-07-14] MEDS: Docusate CAP* 100 MG PO SCH (21:38)
[2018-07-14] MEDS: Magnesium Hydroxide LIQ* 30 ML UDC PO SCH (21:39)
--- NOTE | 2018-07-14 22:01 | OP ---
DATE OF OPERATION: 07/14/18 - ROOM #347 DATE OF : 51 ATTENDING SURGEON: Rick Peterson MD INTERACTIVE WEB DEVELOPER: Oxana Frazier RPA. ANESTHESIA: Spinal/regional/sedation. PRE-OP DIAGNOSIS: Osteoarthritis, right knee. POST-OP DIAGNOSIS: Osteoarthritis. OPERATIVE PROCEDURE: Right total knee arthroplasty. ESTIMATED BLOOD LOSS: Less than 50 cc. COMPLICATIONS: None. HARDWARE: Berhane Persona #4 femur, E tibia, 10-mm polyethylene spacer, 32-mm all- polyethylene patellar button. INDICATION: Ms. Ayala is a 53-year-old female who had a long history of troubles with both of her knees. Five years ago, she had undergone a left total knee arthroplasty, had done well with that. She did, however, remember the painful postoperative course and really tried to put off having anything done for the right. Over the years she underwent injections, physical therapy , activity modification and even a knee arthroscopy. While all of these have helped her, she has been having more and more pain about the right knee and presented to the office requesting a right total knee arthroplasty. I discussed with her once again risk of surgery such as infection, scar formation , stiffness, DVT, pulmonary embolism, hardware failure and continued pain about the knee. She had been declared medically optimized and wished to proceed. DESCRIPTION OF PROCEDURE: Patient had an adductor canal block placed in the holding area and was brought back to the OR. Spinal anesthesia was introduced. Mckeon catheter was placed. Tourniquet was placed over the proximal thigh and was used during the case and the tourniquet time would be approximately 65 minutes. Right knee was prepped and then draped. An Esmarch was used to exsanguinate the leg and tourniquet was raised. A midline incision was made beginning about 4 cm above the superior pole of the patella, carried down to the medial side of the tibial tubercle. Incision was carried down through the skin and subcutaneous tissues. Small bleeders were encountered and ligated using electrocautery. Extensor mechanism was exposed and sharp parapatellar arthrotomy was made. Gush of clear yellowish joint fluid was encountered. Soft tissues were sharply elevated from the medial side of the tibia. The fat pad was sharply excised. Patella was measured and measured approximately 22 mm in thickness. A 9-mm cut was taken and the patella was then easily subluxated laterally. The knee was flexed up and nice exposure of the distal femur was obtained. A step drill was used to open the femoral canal and the intramedullary guide was placed. Guide was placed and adjusted until it was parallel with the epicondyle and was actually parallel with the posterior condyle as well. Cutting guide was then pinned into place and the intramedullary guide was removed. The guide had been set a 3 degrees and was set at 2 mm. Distal tibial cut was taken and much more was taken from the medial side as intended. Femur was sized and she sat nicely for a 4. This corresponded well. She had a size 4 on the opposite side. Holes were drilled and a 4 cutting block was placed. With checking the superior hole, the drill was within the substance of the cortex. Cutting block was moved up 2 mm and now the drill went right on the top side of the femur. Anterior and posterior femoral cuts followed by chamfer cuts were taken. Attention was turned to the tibia. Step drill was used to open the tibial canal and intramedullary guide was placed. Outrigger was assembled and adjusted until it appeared it would take 2 mm from the worn medial side. Cutting guide was then pinned into place and a proximal tibial cut was taken. A 10-mm spacer block was then placed and a drop almaz was run. Her tibial alignment appeared perfect where the drop almaz was exactly parallel was right on top of the spine of the tibia pointing toward the base of the second metatarsal. On the femur, however, it could be seen that there was some very specific play and that I could probably take approximately a millimeter and a half from the medial femoral condyle. Femoral condyle was free cut taking an oblique cut coming from the medial side and coming to about one third the way across the lateral side. Cutting block was replaced and chamfer cuts were recut. With a 12 block, she was little snug and the 10 block had a little play, but she no longer had that wobble with inadequate resection of the medial side. Proximal tibia was then drilled and then punched. The femur was then finished with the notch cut finishing guide. Trial instrumentation was placed and with a 10-mm polyethylene, she came out nicely into full extension and easily flexed. Patella tracking without the prosthesis was perfect. Patella was sized in the 32 sat very nicely. Holes were drilled and the trial was snapped into place. The patellar tracking was still perfect. The trial instrumentation was removed and the knee was copiously pulse lavaged. Cement was being prepared. Tibia followed by femur and patella were all cemented into place. Extra cement was removed and the cement was allowed to harden. Once the cement had hardened, knee was searched for extra piece of cement and several were found. These were all removed. Knee was then copiously pulse lavaged and she was trialed with a 10 and an 11. With a 10, she came out nicely into full extension and flexed quite nicely. She had a good stability throughout. With the 11, her stability did not seem to change much, but now had little more difficulty trying to get around to full extension so I decided to go with the 10. A 10 polyethylene was then snapped into place. The knee was again copiously pulse lavaged and the parapatellar arthrotomy was repaired using interrupted #1 Vicryl sutures. Tourniquet was let down and no significant bleeding was encountered. Subcutaneous tissues were reapproximated with 2-0 Vicryl, the skin was closed using mat. Sterile dressing and a Cryo/cuff applied in the OR. Patient was then awakened stable on transfer to the recovery room. [id number]/[facility] #: [id number] ALHAJI
[2018-07-14] MEDS: HYDROmorphone INJ1* 1 MG/ML SYRINGE IV SLOW PU PRN (22:13)
[2018-07-15] MEDS: ceFAZolin 1 GM in Dextrose (*) 1 GM/50 ML BAG IVPB SCH ×2 (00:04→07:46)
[2018-07-15] MEDS: Gabapentin CAP(*) 300 MG PO PRN (01:29)
[2018-07-15] MEDS: HYDROmorphone INJ1* 1 MG/ML SYRINGE IV SLOW PU PRN ×3 (02:29→18:56)
[2018-07-15] MEDS: Ondansetron INJ* 2 MG/ML VIAL IV PRN (02:39)
[2018-07-15] MEDS: Hydrocodone/Acetamin 10/325 1 TAB PO PRN ×2 (03:39→11:47)
[2018-07-15] MEDS: Hydrocodone/Acetamin 10/325 1 TAB PO SCH ×3 (06:03→22:05)
[2018-07-15] MEDS: Cyclobenzaprine TAB* 10 MG PO PRN ×2 (06:04→18:04)
[2018-07-15] MEDS: Nicotine Patch Removal NOTE FOLLOW UP SCH (06:09)
[2018-07-15 06:15] LABS: Hematocrit 34 % (35-47); Hemoglobin 11.3 g/dl (12.0-16.0); Mean Platelet Volume 8.9 um3 (7.4-10.4); Platelet Count 179 10^3/ul (150-450)
[2018-07-15 06:35] LABS: EGFR Non-African American 66.2 (>60)
--- NOTE | 2018-07-15 07:40 | PN ---
Progress Note - Progress Note Date of Service: 07/15/18 SOAP: Subjective: resting comfortably with moderate right knee pain; denies SOB/chest pain Objective: Vital Signs Temp Pulse Resp BP Pulse Ox 98.5 F 63 18 143/69 99 07/15/18 03:45 07/15/18 03:45 07/15/18 06:04 07/15/18 03:45 07/15/18 03:45 Laboratory Last Values Hgb 11.3 g/dl (12.0-16.0) L 07/15/18 06:01 Hct 34 % (35-47) L 07/15/18 06:01 Plt Count 179 10^3/ul (150-450) 07/15/18 06:01 MPV 8.9 um3 (7.4-10.4) 07/15/18 06:01 INR (Anticoag Therapy) 1.00 (0.77-1.02) 07/15/18 06:01 Sodium 138 mmol/L (135-145) 07/15/18 06:01 Potassium 4.5 mmol/L (3.5-5.0) 07/15/18 06:01 Chloride 107 mmol/L (101-111) 07/15/18 06:01 Carbon Dioxide 29 mmol/L (22-32) 07/15/18 06:01 Anion Gap 2 mmol/L (2-11) 07/15/18 06:01 BUN 11 mg/dL (6-24) 07/15/18 06:01 Creatinine 0.86 mg/dL (0.51-0.95) 07/15/18 06:01 Est GFR ( Amer) 80.1 (>60) 07/15/18 06:01 Est GFR (Non-Af Amer) 66.2 (>60) 07/15/18 06:01 BUN/Creatinine Ratio 12.8 (8-20) 07/15/18 06:01 Glucose 124 mg/dL (70-100) H 07/15/18 06:01 Calcium 8.5 mg/dL (8.6-10.3) L 07/15/18 06:01 incision: c/d/i PE: 2+ DP pulse, able to dorsi flex/plantar flex, intact sensation Assessment: s/p right TKA; POD#1 Plan: 1) PT/OT-WBAT 2) Coumadin/heparin for DVT prophylaxis- 8mg coumadin ordered for tonight 3) continue current pain regimen
[2018-07-15] MEDS: amLODIPine TAB* 5 MG PO SCH (08:32)
[2018-07-15] MEDS: Hydrochlorothiazide TAB* 25 MG PO SCH (08:32)
[2018-07-15] MEDS: Docusate CAP* 100 MG PO SCH ×2 (08:32→19:58)
[2018-07-15] MEDS: Lisinopril TAB* 10 MG PO SCH (08:32)
[2018-07-15] MEDS: Magnesium Hydroxide LIQ* 30 ML UDC PO SCH ×2 (08:32→19:59)
[2018-07-15] MEDS: Nicotine PATCH 14 MG/24 HR* PATCH TRANSDERM SCH (08:42)
--- NOTE | 2018-07-15 11:41 | CONSULT ---
Subjective Date of Service: 07/15/18 Interval History: Pain in right knee 05/30. Had nausea overnight with dilaudid but now improved. Denies SOB, CP, cough, palpitations Review of Systems - Measurements Intake and Output: Intake and Output Last 24 Hours 07/12/18 07/13/18 07/14/18 07/15/18 11:59 11:59 11:59 11:59 Intake Total 1850 2110 Output Total 200 1325 Balance 1650 785 Weight 73.936 kg Intake: IV Fluids 1850 950 D5W 1/2 NS 950 LR 1800 NS 50ML, Cefazolin 2G 50 Oral 1160 Output: Mckeon 200 1125 Emesis 200 Other: # Bowel Movements 0 Estimated Blood Loss 150 Comment Objective Active Medications: Acetaminophen (Tylenol Tab*) 975 mg PO Q8H PRN PRN Reason: PAIN OR TEMPERATURE Hydrocodone Bitart/Acetaminophen ([place] 10/325 (Nf)) 1 tab PO Q8H [facility] Last Admin: 07/15/18 06:03 Dose: 1 tab Hydrocodone Bitart/Acetaminophen ([place] 10/325 (Nf)) 1 tab PO Q8H PRN PRN Reason: PAIN Last Admin: 07/15/18 03:39 Dose: 1 tab Amlodipine Besylate (Norvasc Tab*) 10 mg PO QAM [facility] Last Admin: 07/15/18 08:32 Dose: 10 mg Bisacodyl (Dulcolax Supp*) 10 mg OK DAILY PRN PRN Reason: constipation Cyclobenzaprine HCl (Flexeril Tab*) 10 mg PO TID PRN PRN Reason: SPASMS Last Admin: 07/15/18 06:04 Dose: 10 mg Diphenhydramine HCl (Benadryl Iv*) 25 mg IV Q6H PRN PRN Reason: itching Diphenhydramine HCl (Benadryl Po*) 25 mg PO Q6H PRN PRN Reason: itching Docusate Sodium (Colace Cap*) 100 mg PO BID [facility] Last Admin: 07/15/18 08:32 Dose: 100 mg Gabapentin (Neurontin Cap(*)) 300 mg PO BID PRN PRN Reason: PAIN - MILD TO MODERATE Last Admin: 07/15/18 01:29 Dose: 300 mg Heparin Sodium (Porcine) (Heparin Vial(*)) 5,000 units SUBCUT Q8H [facility] Hydrochlorothiazide (Hydrodiuril Tab*) 25 mg PO QAM [facility] Last Admin: 07/15/18 08:32 Dose: 25 mg Hydromorphone HCl (Dilaudid Inj1s*) 0.5 mg IV SLOW PU Q4H PRN PRN Reason: PAIN - UNCONTROLLED Hydromorphone HCl (Dilaudid Inj1s*) 1 mg IV SLOW PU Q4H PRN PRN Reason: PAIN - BREAKTHROUGH Last Admin: 07/15/18 08:32 Dose: 1 mg Dextrose/Sodium Chloride (D5w 1/2 Ns 1000 Ml Bag*) 1,000 mls @ 100 mls/hr IV PER RATE [facility] Last Admin: 07/15/18 02:41 Dose: 100 mls/hr Lactulose (Lactulose*) 30 ml PO BID PRN PRN Reason: CONSTIPATION Lisinopril (Prinivil Tab*) 20 mg PO DAILY [facility] Last Admin: 07/15/18 08:32 Dose: 20 mg Magnesium Hydroxide (Milk Of Magnesia Liq*) 30 ml PO BID [facility] Last Admin: 07/15/18 08:32 Dose: 30 ml Magnesium Hydroxide (Milk Of Magnesia Liq*) 30 ml PO Q6H PRN PRN Reason: constipation Nicotine (Nicotine Patch 14 Mg/24 Hr*) 1 patch TRANSDERM DAILY [facility] Last Admin: 07/15/18 08:42 Dose: 1 patch Ondansetron HCl (Zofran Inj*) 4 mg IV Q6H PRN PRN Reason: nausea Last Admin: 07/15/18 02:39 Dose: 4 mg Ondansetron HCl (Zofran Odt Tab*) 4 mg PO Q6H PRN PRN Reason: NAUSEA Pharmacy Profile Note (Nicotine Patch Removal Note*) 1 note FOLLOW UP 0600 [facility] Last Admin: 07/15/18 06:09 Dose: 1 note Tramadol HCl (Ultram*) 50 mg PO Q6H PRN PRN Reason: PAIN - MILD Warfarin Sodium (Coumadin Tab(*)) 8 mg PO ONCE@1700 ONE; Protocol Stop: 07/15/18 17:01 Vital Signs - 8 hr 07/15/18 07/15/18 07/15/18 03:39 03:45 04:33 Temperature 98.5 F Pulse Rate 63 Respiratory 18 18 18 Rate Blood Pressure 143/69 (mmHg) O2 Sat by Pulse 99 Oximetry 07/15/18 07/15/18 07/15/18 05:30 06:03 06:04 Temperature Pulse Rate Respiratory 16 18 18 Rate Blood Pressure (mmHg) O2 Sat by Pulse Oximetry 07/15/18 07/15/18 07/15/18 07:48 07:56 08:32 Temperature 98.5 F Pulse Rate 70 Respiratory 16 16 16 Rate Blood Pressure 138/69 (mmHg) O2 Sat by Pulse 94 94 Oximetry Oxygen Devices in Use Now: None Appearance: sitting in chair, NAD Eyes: No Scleral Icterus, PERRLA Ears/Nose/Mouth/Throat: NL Teeth, Lips, Gums, Clear Oropharnyx, Mucous Membranes Moist Neck: NL Appearance and Movements; NL JVP, Trachea Midline Respiratory: Symmetrical Chest Expansion and Respiratory Effort, Clear to Auscultation Cardiovascular: RRR, - - early peaking EARL Abdominal: NL Sounds; No Tenderness; No Distention, No Hepatosplenomegaly Lymphatic: No Cervical Adenopathy Extremities: - - right knee wrapped/cooling, NV intact Skin: No Rash or Ulcers Neurological: Alert and Oriented x 3 Result Diagrams: 07/15/18 06:01 07/15/18 06:01 Assessment/Plan - Billing 63 yo F h/o HTN, depression POD 1 right TKA TKA - care per primary team. Currently receiving coumadin for AC. Making good use of available pain regimen. -bedside IS teaching performed and continued usage encouraged. HTN- On home regimen; lisinopril, HCTZ, norvasc with latest reading controlled despite continued pain. No plan for additional changes unless pain controlled and consistently SBP>140 or DBP> 90 COPD - questionable dx. Respiratory status stable. Will sign off for now. Please call with additional questions or concerns [phone]
[2018-07-15] MEDS: Heparin VIAL(*) 5000 UNITS/ML VIAL (FIVE THOUSAND) SUBCUT SCH ×2 (11:48→19:58)
[2018-07-15] MEDS ORDERED: Ketorolac INJ* 15 MG/ML 1 ML VIAL IV PUSH PRN (14:33)
[2018-07-15] MEDS ORDERED: Warfarin TAB(*) 4 MG PO ONE (17:00)
[2018-07-15] MEDS ORDERED: Ketorolac INJ* 15 MG/ML 1 ML VIAL IV PUSH SCH (18:00)
[2018-07-15] MEDS: traMADol TAB* 50 MG PO PRN (19:58)
[2018-07-15] MEDS: Ketorolac INJ* 15 MG/ML 1 ML VIAL IV PUSH SCH (23:47)
[2018-07-16] MEDS: Heparin VIAL(*) 5000 UNITS/ML VIAL (FIVE THOUSAND) SUBCUT SCH (04:11)
[2018-07-16] MEDS: Cyclobenzaprine TAB* 10 MG PO PRN (04:12)
[2018-07-16 05:44] LABS: Hematocrit 32 % (35-47); Hemoglobin 10.5 g/dl (12.0-16.0); Mean Platelet Volume 9.5 um3 (7.4-10.4); Platelet Count 164 10^3/ul (150-450)
[2018-07-16] MEDS: Ketorolac INJ* 15 MG/ML 1 ML VIAL IV PUSH SCH (05:52)
[2018-07-16] MEDS: Hydrocodone/Acetamin 10/325 1 TAB PO SCH ×3 (05:54→22:02)
[2018-07-16] MEDS: Nicotine Patch Removal NOTE FOLLOW UP SCH (05:55)
[2018-07-16 06:00] LABS: INR 2.76 (0.77-1.02)
[2018-07-16] MEDS: Gabapentin CAP(*) 300 MG PO PRN (08:48)
[2018-07-16] MEDS: Magnesium Hydroxide LIQ* 30 ML UDC PO SCH ×2 (08:48→20:45)
[2018-07-16] MEDS: Docusate CAP* 100 MG PO SCH ×2 (08:49→20:51)
[2018-07-16] MEDS: Nicotine PATCH 14 MG/24 HR* PATCH TRANSDERM SCH (08:49)
[2018-07-16] MEDS: Hydrocodone/Acetamin 10/325 1 TAB PO PRN (08:49)
--- NOTE | 2018-07-16 09:23 | PN ---
Progress Note - Progress Note Date of Service: 07/16/18 SOAP: Subjective: []Patient seen and examined at bedside. She has pain of her right calf and knee. Denies chest pain, shortness of breath, dizziness or nausea. Has a bed offer at [facility] though she prefers to go home. Objective: []General: Well appearing, NAD RLE: Right Knee incision CDI without surrounding erythema or discharge. DF/PF intact. Sensation intact distally. DP2+. Calf is supple and nonerythematous without palpable cords. Calf is with 1+ edema, tender throughout and ecchymotic. Assessment: []POD 2 sp right total knee replacement Plan: []WBAT PT/OT stop heparin, coumadin 2 mg today Dopplar ordered to r/o DVT, though exam more consistent with a tight werner wrap Increase PO fluids for low BP (asymptomatic) Use incentive spirometer to improve O2 sat (asymptomatic) Vital Signs Temp 98.3 F 07/16/18 07:10 Pulse 78 07/16/18 07:10 Resp 16 07/16/18 08:49 BP 94/60 07/16/18 08:48 Pulse Ox 94 07/16/18 07:10 Intake & Output 07/15/18 07/16/18 07/16/18 18:59 06:59 18:59 Intake Total 960 1390 240 Output Total 400 950 Balance 560 440 240 Intake: Oral 960 1390 240 Output: Urine 400 950 Other: Estimated Void Medium Date of Last Bowel 07/16/18 Movement # Bowel Movements 2 Estimated Stool Amount Medium # Voids 1 Laboratory Last Values Hgb 10.5 g/dl (12.0-16.0) L 07/16/18 05:11 Hct 32 % (35-47) L 07/16/18 05:11 Plt Count 164 10^3/ul (150-450) 07/16/18 05:11 MPV 9.5 um3 (7.4-10.4) 07/16/18 05:11 INR (Anticoag Therapy) 2.76 (0.77-1.02) H 07/16/18 05:11 Sodium 138 mmol/L (135-145) 07/15/18 06:01 Potassium 4.5 mmol/L (3.5-5.0) 07/15/18 06:01 Chloride 107 mmol/L (101-111) 07/15/18 06:01 Carbon Dioxide 29 mmol/L (22-32) 07/15/18 06:01 Anion Gap 2 mmol/L (2-11) 07/15/18 06:01 BUN 11 mg/dL (6-24) 07/15/18 06:01 Creatinine 0.86 mg/dL (0.51-0.95) 07/15/18 06:01 Est GFR ( Amer) 80.1 (>60) 07/15/18 06:01 Est GFR (Non-Af Amer) 66.2 (>60) 07/15/18 06:01 BUN/Creatinine Ratio 12.8 (8-20) 07/15/18 06:01 Glucose 124 mg/dL (70-100) H 07/15/18 06:01 Calcium 8.5 mg/dL (8.6-10.3) L 07/15/18 06:01
[2018-07-16] MEDS: Hydrochlorothiazide TAB* 25 MG PO SCH (10:17)
[2018-07-16] MEDS: amLODIPine TAB* 5 MG PO SCH (10:17)
[2018-07-16] MEDS: traMADol TAB* 50 MG PO PRN (10:18)
[2018-07-16] MEDS: Lisinopril TAB* 10 MG PO SCH (10:18)
--- NOTE | 2018-07-16 12:03 | RAD ---
INDICATION: RIGHT calf pain and swelling. RIGHT total knee replacement July 14, 2018. Assess for DVT. COMPARISON: No relevant prior exams available on the [facility] PACS for comparison. TECHNIQUE: Fuller scale, color Doppler, and spectral analysis of the deep veins of the RIGHT lower extremity. Vessel compression, phasicity, and augmentation assessed. REPORT: The RIGHT common femoral, great saphenous, profunda femoral, femoral, popliteal, peroneal, and posterior tibial veins are patent. Patency of the LEFT common femoral vein documented. IMPRESSION: No evidence for RIGHT lower extremity deep venous thrombosis.
[2018-07-16] MEDS: Gabapentin CAP(*) 300 MG PO SCH ×2 (13:19→20:52)
[2018-07-16] MEDS ORDERED: Warfarin TAB(*) 2 MG PO NR (17:00)
[2018-07-17] MEDS: traMADol TAB* 50 MG PO PRN (04:27)
[2018-07-17 05:36] LABS: Hematocrit 32 % (35-47); Hemoglobin 10.7 g/dl (12.0-16.0); Mean Platelet Volume 9.2 um3 (7.4-10.4); Platelet Count 177 10^3/ul (150-450)
[2018-07-17 05:42] LABS: INR 3.98 (0.77-1.02)
[2018-07-17] MEDS: Hydrocodone/Acetamin 10/325 1 TAB PO SCH (06:12)
[2018-07-17] MEDS: Nicotine Patch Removal NOTE FOLLOW UP SCH (06:13)
[2018-07-17] MEDS: Gabapentin CAP(*) 300 MG PO SCH (08:34)
[2018-07-17] MEDS: Docusate CAP* 100 MG PO SCH (08:35)
[2018-07-17] MEDS: amLODIPine TAB* 5 MG PO SCH (08:35)
[2018-07-17] MEDS: Nicotine PATCH 14 MG/24 HR* PATCH TRANSDERM SCH (08:36)
[2018-07-17] MEDS: Magnesium Hydroxide LIQ* 30 ML UDC PO SCH (08:40)
--- NOTE | 2018-07-17 09:22 | PN ---
Progress Note - Progress Note Date of Service: 07/17/18 SOAP: Subjective: [] Patient seen and examined at bedside. She is ready for DC. Denies CP, SOB, dizziness or nausea. Objective: []General: Well appearing, NAD RLE: Right Knee incision CDI without surrounding erythema or discharge. DF/PF intact. Sensation intact distally. DP2+. Calf is supple and nonerythematous without palpable cords. Calf is with mild edema improved from yesterday and remains tender throughout with mild ecchymosis Left calf supple and nontender without erythema, edema or palapble cords Assessment: []POD 3 sp right total knee replacement Plan: []WBAT PT/OT coumadin 0 mg today Dopplar study negative for DVT RLE BPs and O2 sat have improved Vital Signs Temp 98.6 F 07/17/18 07:35 Pulse 85 07/17/18 07:35 Resp 18 07/17/18 08:34 BP 116/57 07/17/18 07:35 Pulse Ox 95 07/17/18 08:00 Intake & Output 07/16/18 07/17/18 07/17/18 18:59 06:59 18:59 Intake Total 1240 900 Output Total 100 475 Balance 1140 425 Intake: Oral 1240 900 Output: Urine 100 475 Other: # Bowel Movements 0 Laboratory Last Values Hgb 10.7 g/dl (12.0-16.0) L 07/17/18 05:17 Hct 32 % (35-47) L 07/17/18 05:17 Plt Count 177 10^3/ul (150-450) 07/17/18 05:17 MPV 9.2 um3 (7.4-10.4) 07/17/18 05:17 INR (Anticoag Therapy) 3.98 (0.77-1.02) H 07/17/18 05:17 Sodium 138 mmol/L (135-145) 07/15/18 06:01 Potassium 4.5 mmol/L (3.5-5.0) 07/15/18 06:01 Chloride 107 mmol/L (101-111) 07/15/18 06:01 Carbon Dioxide 29 mmol/L (22-32) 07/15/18 06:01 Anion Gap 2 mmol/L (2-11) 07/15/18 06:01 BUN 11 mg/dL (6-24) 07/15/18 06:01 Creatinine 0.86 mg/dL (0.51-0.95) 07/15/18 06:01 Est GFR ( Amer) 80.1 (>60) 07/15/18 06:01 Est GFR (Non-Af Amer) 66.2 (>60) 07/15/18 06:01 BUN/Creatinine Ratio 12.8 (8-20) 07/15/18 06:01 Glucose 124 mg/dL (70-100) H 07/15/18 06:01 Calcium 8.5 mg/dL (8.6-10.3) L 07/15/18 06:01
[2018-07-17] MEDS: Hydrocodone/Acetamin 10/325 1 TAB PO PRN (10:00)
[2018-07-17] MEDS: Hydrochlorothiazide TAB* 25 MG PO SCH (11:27)
[2018-07-17] MEDS: Lisinopril TAB* 10 MG PO SCH (11:28)
[2018-07-17 11:31] VITALS: BP 102/64
--- NOTE | 2018-07-17 11:34 | DS ---
AMENDED REPORT NOW INCLUDES COSIGNER DESIGNATION AND DATE OF DISCHARGE ESIGNED BEFORE ADJUSTMENT DISCHARGE SUMMARY: DATE OF ADMISSION: 07/14/18 DATE OF DISCHARGE: 07/17/18 DATE OF OPERATION: 07/14/18 PROVIDER: Dr. Rick Peterson.* (DICTATED BY REED VALLEJO) BRAKE COUPLER DINKEY: REED Lloyd PREOPERATIVE DIAGNOSIS: Osteoarthritis of the right knee. OPERATIVE PROCEDURE: Right total knee arthroplasty. HISTORY: Ms. Ayala is a 63-year-old female with a long history of troubles with both knees. Five years ago, she had a left total knee arthroplasty which she did well with. She has now failed conservative management for her right knee and has elected to undergo a right total knee arthroplasty. HOSPITAL COURSE: The patient was admitted to [facility] on . She underwent a right total knee arthroplasty without complication. On postop day 1, she was well-appearing, in no acute distress. Incision was clean , dry, and intact. 2+ DP pulse. Stable dorsiflexion and plantar flexion. She had significant pain overnight and did need to receive IV Dilaudid. On postop day 2, dressing was changed, incision clean, dry, and intact. The patient had pain of her right calf. A Doppler study was ordered to rule out DVT. Doppler study was negative for DVT. The patient denied any chest pain, shortness of breath, dizziness, or nausea. Due to low blood pressure, her amlodipine, hydrochlorothiazide and lisinopril were all held. On postop day 3, she is well appearing, in no acute distress. Right knee incision was clean, dry, and intact. Dressing was changed. Dorsiflexion and plantar flexion intact. DP pulse 2+, calf is supple and nonerythematous. She did have improvement of her blood pressure. Her amlodipine was given today. Her hydrochlorothiazide and lisinopril were held. The patient was deemed to be medically and orthopedically stable for discharge to [facility]. DISCHARGE MEDICATIONS: 1. Amlodipine 10 mg p.o. q.a.m. 2. Lisinopril/hydrochlorothiazide 20/25. Please have caution with giving both amlodipine and the lisinopril/hydrochlorothiazide as the patient's blood pressure has been intermittently low after surgery. May need to hold one or both of these medications as deemed appropriate. 3. Hydrocodone/acetaminophen 10/325 one tab p.o. q.8 hours p.r.n. 4. Acetaminophen 975 mg p.o. q.8 hours p.r.n. 5. Cyclobenzaprine 10 mg p.o. t.i.d. p.r.n. 6. Docusate 100 mg p.o. b.i.d. 7. Gabapentin 300 mg p.o. t.i.d. 8. Warfarin 2 mg tabs 1 to 3 tabs daily, dose depends on INR. DISCHARGE INSTRUCTIONS: Discharge to [facility]. Weightbearing as tolerated. Change dressings daily. May shower, do not submerge wound. Coumadin given 2 mg tabs, dosing 07/17/18, 0 mg; 07/18/18, 2 mg; 07/19/18, 2 mg , 07/20/18, 4 mg. Recheck INR on 07/21/18. Pain control, Ultram 50 mg every 6 hours as needed for moderate pain; [place] 10/325 one tab every 8 hours as needed for severe pain; may use Tylenol over the counter, maximum daily dose of Tylenol is 4000 mg from all sources. Follow up with Dr. Peterson in 4 weeks. Please note that the patient's blood pressure has been low throughout her hospital stay, on day of discharge 116/57. Only amlodipine 10 mg was given, her hydrochlorothiazide and lisinopril was held. Please be aware that she may need blood pressure medications held throughout the next several days depending on blood pressure readings. REED VALLEJO [id number]/[facility] #: [id number]
== END 2018-07-17 13:15 | DRG 470 ==
LOC: AA 05:54 → SSU 12:04
PROVIDERS: ADMIT Orthopaedic Surgery; ATTEND Orthopaedic Surgery
PROC: 0SRC0J9 Replacement of Right Knee Joint with Synthetic Substitute, Cemented, Open Approach (ICD-10-PCS; principal; 2018-07-14 07:30)
DX: M17.11 Unilateral primary osteoarthritis, right knee (principal); Z96.652 Presence of left artificial knee joint; I95.9 Hypotension, unspecified; F32.9 Major depressive disorder, single episode, unspecified; I10 Essential (primary) hypertension; E78.5 Hyperlipidemia, unspecified; L40.9 Psoriasis, unspecified; K21.9 Gastro-esophageal reflux disease without esophagitis; J44.9 Chronic obstructive pulmonary disease, unspecified; F17.210 Nicotine dependence, cigarettes, uncomplicated; I77.819 Aortic ectasia, unspecified site; R11.0 Nausea; T40.2X5A Adverse effect of other opioids, initial encounter; Y92.239 Unspecified place in hospital as the place of occurrence of the external cause; G89.29 Other chronic pain; M54.5 Low back pain; M25.461 Effusion, right knee; F41.9 Anxiety disorder, unspecified; E66.9 Obesity, unspecified; Z79.01 Long term (current) use of anticoagulants; Z98.51 Tubal ligation status; Z90.711 Acquired absence of uterus with remaining cervical stump; Z98.42 Cataract extraction status, left eye; Z98.41 Cataract extraction status, right eye; Z88.5 Allergy status to narcotic agent; Z88.1 Allergy status to other antibiotic agents; Z88.8 Allergy status to other drugs, medicaments and biological substances; Z82.49 Family history of ischemic heart disease and other diseases of the circulatory system; Z80.0 Family history of malignant neoplasm of digestive organs; Z84.1 Family history of disorders of kidney and ureter; Z23 Encounter for immunization; Z68.30 Body mass index [BMI] 30.0-30.9, adult
CPT/HCPCS: 36415; 80048; 85014; 85018; 85049; 85610; 88305; 88311; 90686; A9270-GY; C1776; G8978-GP-CM; G8979-GP-CJ; G8987-GO-CK; G8988-GO-CI; J0690; J1170; J1644; J1885; J2250; J2405; J2704; J2795; J3010

== ENCOUNTER → 2019-07-14 10:55 | Day surgery (SDC) | payer MEDICARE, MEDICAID ==
[~2019-07-14 10:55] MED LIST: Artificial Tear OPHTH.OINT* 3.5 GM ONE; Buffered Lidocaine 1% SYRIN* 1 ML/SYRINGE INTRADERM ONE; Dexamethasone IV* 4 MG/ML 1 ML (4 MG) ONE; Famotidine IV* 10 MG/ML 2 ML (20 mg) IV ONE; Famotidine IV* 10 MG/ML 2 ML (20 mg) ONE; KETAMINE HCL* 50 MG/ML 10 ML VIAL ONE; Lactated Ringers 1000 ML Bag* 1,000 ML IV SCH; Lidocaine 1% w EPI 1:100,000* MDV 20 ML VIAL ONE; Lidocaine 2% PF * 5 ML VIAL ONE; Midazolam* 1 MG/ML 2 ML VIAL (2 MG) ONE; Midazolam* 1 MG/ML 5 ML VIAL (5 MG) ONE; Mineral Oil Sterile, TOPICAL* 25 ML BTL ONE; Naloxone* 0.4 MG/ML 1 ML VIAL IV PRN; Ondansetron INJ* 2 MG/ML VIAL IV PRN; Ondansetron INJ* 2 MG/ML VIAL ONE; Propofol* 10 MG/ML 20 ML BTL ONE; ceFAZolin 2 GM PREMIX in ORs 2 GM/50 ML BAG ONE; fentaNYL* 50 MCG/ML 2 ML VIAL (100 MCG VIAL) IV PRN; fentaNYL* 50 MCG/ML 2 ML VIAL (100 MCG VIAL) ONE
[2019-07-14 15:30] VITALS: BP 107/55
== END | disposition home or self-care (01) ==
LOC: OR 10:55
PROVIDERS: ATTEND Plastic Surgery
DX: C44.321 Squamous cell carcinoma of skin of nose (principal); J44.9 Chronic obstructive pulmonary disease, unspecified; Z72.0 Tobacco use; I10 Essential (primary) hypertension; K21.9 Gastro-esophageal reflux disease without esophagitis; M19.90 Unspecified osteoarthritis, unspecified site; F41.8 Other specified anxiety disorders; F43.10 Post-traumatic stress disorder, unspecified
CPT/HCPCS: 88305; 88329; A9270-GY; J0690; J1100; J2250; J2405; J2704; J3010